=== PATIENT | female | born 1985 | race African-American/Black ===

== ENCOUNTER 2023-06-29 18:27 | Inpatient (IN) | payer MEDICAID ==
[~2023-06-29] VITALS: Ht 154.9 cm; Wt 49.9 kg
[2023-06-29] MEDS ORDERED: GABAPENTIN (18:39)
[2023-06-29] MEDS ORDERED: DILAUDID (18:39)
[2023-06-29] MEDS ORDERED: HYDROMORPHONE 2 MG/1 ML DISP.SYRIN ONE (18:58)
[2023-06-29] MEDS ORDERED: HYDROMORPHONE 1 MG/1 ML DISP.SYRIN IM ONE (19:00)
[2023-06-29 19:09] LABS: EOSINOPHILS # (AUTO) 0.8 K/uL (0.0-0.7); EOSINOPHILS % (AUTO) 12.6 % (0.0-7.0); HEMATOCRIT 31.6 % (31.2-41.9); HEMOGLOBIN 10.3 g/dL (10.9-14.3); LYMPHOCYTES # (AUTO) 2.2 K/uL (0.8-4.8); LYMPHOCYTES % (AUTO) 34.2 % (20.5-51.5); MEAN CORPUSCULAR HEMOGLOBIN 28.7 uug (24.7-32.8); MEAN CORPUSCULAR HGB CONC 33 g/dL (32.3-35.6); MEAN CORPUSCULAR VOLUME 88.2 fL (75.5-95.3); MONOCYTES # (AUTO) 0.3 K/uL (0.1-1.30); MONOCYTES % (AUTO) 5.2 % (0.0-11.0); NEUTROPHILS # (AUTO) 3.1 K/uL (1.8-8.9); PLATELET COUNT (AUTO) 365 K/uL (179-408); RED BLOOD CELL COUNT(AUTO) 3.58 MIL/uL (3.63-4.92); RED CELL DISTRIBUTION WIDTH 18.4 % (12.3-17.7); WHITE BLOOD COUNT (AUTO) 6.5 K/uL (3.8-11.8)
[2023-06-29 19:10] LABS: DIFFERENTIAL COMMENT 1
[2023-06-29 19:16] LABS: CALCIUM 10.2 mg/dL (8.5-10.1); CREATININE 0.7 mg/dL (0.6-1.3); POTASSIUM 3.9 mmol/L (3.5-5.1)
[2023-06-29 19:28] LABS: ALBUMIN 2.4 g/dL (3.4-5.0); BILIRUBIN,TOTAL 0.1 mg/dL (0.2-1.0); TOTAL PROTEIN, SERUM 7.6 g/dL (6.4-8.2)
[2023-06-29 20:09] LABS: *BILIRUBIN,URIN NEGATIVE (NEGATIVE); *BLOOD, URINE 1+ (NEGATIVE); *CLARITY,URINE CLEAR (CLEAR); *COLOR,URINE YELLOW (YELLOW); *KETONES,URINE NEGATIVE (NEGATIVE); *PROTEIN,URINE 2+ (NEGATIVE); *UROBILINOGEN,URINE 0.2 E.U./dl (NORMAL); LEUKOCYTE ESTERASE ,URINE TRACE (NEGATIVE); NITRITE, URINE NEGATIVE (NEGATIVE); UGLUCOSE NEGATIVE (NEGATIVE)
[2023-06-29] MEDS ORDERED: CEphaleXIN 500 MG CAPSULE PO ONE (20:30)
[2023-06-29] MEDS ORDERED: CEPH500C2 PO (20:32)
[2023-06-29] MEDS ORDERED: HYDROMORPHONE 1 MG/1 ML DISP.SYRIN IV ONE (21:15)
[2023-06-29] MEDS ORDERED: IV NS 1000 ML 1,000 ML IV ONE (21:15)
[2023-06-29] MEDS ORDERED: ONDANSETRON 4 MG/2 ML VIAL IV ONE (21:15)
[2023-06-29] MEDS ORDERED: AZITHROMYCIN IV 500 MG in IV DEXTROSE 5% 250 ML IV ONE (23:00)
[2023-06-29] MEDS ORDERED: CEFTRIAXONE 1 G in IV DEXTROSE 5% 50 ML IV ONE (23:00)
[2023-06-29] MEDS ORDERED: METRONIDAZOLE 500 MG/NS 100 ML PIGGYBACK IV ONE (23:00)
[2023-06-29] MEDS ORDERED: CEFTRIAXONE /D5W 50ML IVPB **ER PYXIS IV ONE (23:16)
[2023-06-29] MEDS ORDERED: AZITHROMYCIN 500MG/ D5W 250ML IVPB **ER PYXIS ONLY IV ONE (23:17)
[2023-06-30] MEDS ORDERED: MAGNESIUM HYDROXIDE 30 ML LIQUID UDC PO PRN
[2023-06-30] MEDS ORDERED: PIPERACILLIN SODIUM/TAZOBACTAM 4.5 G in IV DEXTROSE 5% 50 ML IV SCH ×2
[2023-06-30] MEDS ORDERED: HYDROCODONE/APAP 10-325 MG TABLET PO PRN
[2023-06-30] MEDS ORDERED: ACETAMINOPHEN 325 MG TABLET PO PRN
[2023-06-30] MEDS ORDERED: hydrALAZINE HCL 25 MG TABLET PO PRN
[2023-06-30] MEDS ORDERED: REMEDY ESSENTIAL ZINC PASTE 113 GM TP PRN
[2023-06-30] MEDS ORDERED: IOHEXOL 350 100 ML INFUS..BTL ONE (00:24)
[2023-06-30] MEDS ORDERED: IV NORMAL SALINE 250 ML IV ONE (00:24)
[2023-06-30] MEDS ORDERED: SWABABLE VALVE TRANSFER SET EA MC ONE (00:24)
[2023-06-30] MEDS ORDERED: HYDROMORPHONE 2 MG/1 ML DISP.SYRIN ONE (03:01)
[2023-06-30] MEDS: HYDROMORPHONE 1 MG/1 ML DISP.SYRIN IV PRN ×2 (03:03→07:52)
[2023-06-30 03:20] VITALS: BP 153/105; TEMP 99.7; O2SAT 99
[2023-06-30] MEDS: IV 1/2NS 1000 ML 1,000 ML IV PRN ×2 (03:39→16:33)
[2023-06-30] MEDS: ENOXAPARIN SODIUM 40 MG/0.4 ML DISP.SYRIN SQ SCH ×2 (03:43→21:30)
[2023-06-30] MEDS ORDERED: PIPERACILLIN SODIUM/TAZOBACTAM 4.5 G in IV DEXTROSE 5% 50 ML IV ONE (03:45)
[2023-06-30] MEDS ORDERED: PIPERACILLIN/TAZO 4.5 GM VIAL IV ONE (04:17)
[2023-06-30] MEDS: diphenhydrAMINE 25 MG CAP PO PRN ×2 (05:16→16:31)
[2023-06-30 07:23] LABS: *URINE HCG, QUAL NEGATIVE (NEGATIVE)
[2023-06-30] MEDS ORDERED: AMLODIPINE 5 MG TABLET PO SCH (09:00)
[2023-06-30] MEDS: AMLODIPINE 5 MG TABLET PO SCH ×2 (09:31→21:28)
[2023-06-30] MEDS: METOPROLOL TARTRATE 50 MG TABLET PO SCH ×2 (09:32→21:29)
[2023-06-30] MEDS: LOSARTAN POTASSIUM 50 MG TABLET PO SCH ×2 (09:32→21:29)
[2023-06-30] MEDS ORDERED: VITAMINS A AND D 5 GM UD PKT TP ONE (11:00)
[2023-06-30] MEDS ORDERED: HYDROMORPHONE 2 MG/1 ML DISP.SYRIN IV PRN (11:15)
[2023-06-30 11:34] VITALS: BP 141/98; TEMP 99.2; O2SAT 99
[2023-06-30] MEDS ORDERED: HYDROMORPHONE HCL 2 MG TABLET PO PRN (12:15)
[2023-06-30] MEDS: DEXAMETHASONE 4 MG TABLET PO SCH (12:15)
[2023-06-30] MEDS: GABAPENTIN 400 MG CAPSULE PO SCH ×2 (12:47→16:31)
[2023-06-30] MEDS: BACLOFEN 20 MG TABLET PO SCH ×2 (12:47→16:31)
[2023-06-30] MEDS: MIRALAX 17 GM POWD.PACK PO SCH (12:47)
[2023-06-30] MEDS: ONDANSETRON 4 MG/2 ML VIAL IV PRN (12:55)
[2023-06-30] MEDS ORDERED: MORPHINE SULFATE SR 30 MG TABLET.SA PO SCH (14:00)
[2023-06-30] MEDS: PIPERACILLIN SODIUM/TAZOBACTAM 3.375 G in IV DEXTROSE 5% 100 ML IV SCH ×2 (14:20→21:31)
[2023-06-30 15:46] VITALS: BP 124/74; TEMP 99.1; O2SAT 98
[2023-06-30] MEDS: HYDROMORPHONE 2 MG/1 ML DISP.SYRIN IV PRN ×2 (16:31→22:25)
[2023-06-30 20:56] VITALS: BP 145/97; TEMP 98.6; O2SAT 99
[2023-06-30] MEDS: DOCUSATE SODIUM 100 MG CAPSULE PO SCH (21:28)
[2023-07-01 00:12] VITALS: BP 128/91; TEMP 99.5; O2SAT 99
[2023-07-01] MEDS: HYDROMORPHONE 2 MG/1 ML DISP.SYRIN IV PRN ×6 (02:29→22:36)
[2023-07-01] MEDS: ONDANSETRON 4 MG/2 ML VIAL IV PRN ×3 (02:40→10:43)
[2023-07-01 04:15] VITALS: BP 127/87; TEMP 98.7; O2SAT 100
[2023-07-01] MEDS: IV 1/2NS 1000 ML 1,000 ML IV PRN (06:35)
[2023-07-01] MEDS: PIPERACILLIN SODIUM/TAZOBACTAM 3.375 G in IV DEXTROSE 5% 100 ML IV SCH ×3 (06:35→22:03)
[2023-07-01 07:51] LABS: BASOPHILS % (AUTO) 0.7 % (0.0-2.0); EOSINOPHILS # (AUTO) 0.1 K/uL (0.0-0.7); EOSINOPHILS % (AUTO) 1.6 % (0.0-7.0); HEMATOCRIT 24.8 % (31.2-41.9); HEMOGLOBIN 8.4 g/dL (10.9-14.3); LYMPHOCYTES # (AUTO) 0.5 K/uL (0.8-4.8); LYMPHOCYTES % (AUTO) 7.3 % (20.5-51.5); MEAN CORPUSCULAR HEMOGLOBIN 29.8 uug (24.7-32.8); MEAN CORPUSCULAR HGB CONC 34 g/dL (32.3-35.6); MEAN CORPUSCULAR VOLUME 88.2 fL (75.5-95.3); MONOCYTES # (AUTO) 0.9 K/uL (0.1-1.30); MONOCYTES % (AUTO) 13.8 % (0.0-11.0); NEUTROPHILS % (AUTO) 76.6 % (38.5-71.5); PLATELET COUNT (AUTO) 283 K/uL (179-408); RED BLOOD CELL COUNT(AUTO) 2.81 MIL/uL (3.63-4.92); WHITE BLOOD COUNT (AUTO) 6.5 K/uL (3.8-11.8)
[2023-07-01 07:56] LABS: DIFFERENTIAL COMMENT 1
[2023-07-01 08:09] LABS: ALBUMIN 1.9 g/dL (3.4-5.0); BILIRUBIN,TOTAL 0.1 mg/dL (0.2-1.0); CALCIUM 9.1 mg/dL (8.5-10.1); CREATININE 0.7 mg/dL (0.6-1.3); MAGNESIUM 1.6 mg/dL (1.8-2.4); POTASSIUM 3.3 mmol/L (3.5-5.1); TOTAL PROTEIN, SERUM 6.3 g/dL (6.4-8.2)
[2023-07-01 08:17] LABS: THYROID STIMULATING HORMONE 0.737 mIU/mL (0.358-3.740)
[2023-07-01] MEDS: DOCUSATE SODIUM 100 MG CAPSULE PO SCH ×3 (09:00→21:07)
[2023-07-01] MEDS: MIRALAX 17 GM POWD.PACK PO SCH (09:00)
[2023-07-01] MEDS ORDERED: POTASSIUM CHLORIDE 20 MEQ TAB.PRT.SR PO ONE (09:15)
[2023-07-01] MEDS ORDERED: MAGNESIUM OXIDE 400 MG TABLET PO ONE (09:15)
[2023-07-01] MEDS: BACLOFEN 20 MG TABLET PO SCH ×3 (09:47→17:31)
[2023-07-01] MEDS: GABAPENTIN 400 MG CAPSULE PO SCH ×3 (09:47→17:31)
[2023-07-01] MEDS: DEXAMETHASONE 4 MG TABLET PO SCH (09:47)
[2023-07-01] MEDS: METOPROLOL TARTRATE 50 MG TABLET PO SCH ×2 (09:50→21:07)
[2023-07-01] MEDS: LOSARTAN POTASSIUM 50 MG TABLET PO SCH ×2 (09:50→21:08)
[2023-07-01] MEDS: AMLODIPINE 5 MG TABLET PO SCH ×2 (09:50→21:07)
[2023-07-01 11:30] VITALS: BP 105/75; TEMP 98.9; O2SAT 98
[2023-07-01 16:30] VITALS: BP 110/77; TEMP 98.4; O2SAT 98
[2023-07-01] MEDS ORDERED: SENN1TAB33 PO (18:20)
[2023-07-01] MEDS ORDERED: HYDR4TAB4 IV (18:20)
[2023-07-01] MEDS ORDERED: ONDA4TAB11 PO (18:20)
[2023-07-01] MEDS ORDERED: PANT40TA2 PO (18:20)
[2023-07-01] MEDS ORDERED: METO50TA16 PO (18:20)
[2023-07-01] MEDS ORDERED: BACL20TA PO (18:20)
[2023-07-01] MEDS ORDERED: AMLO10TA59 PO (18:20)
[2023-07-01] MEDS ORDERED: GABA-536 PO (18:20)
[2023-07-01] MEDS ORDERED: POLY119P2 PO (18:20)
[2023-07-01] MEDS ORDERED: ALBU0.63 NEB (18:20)
[2023-07-01] MEDS ORDERED: FOLI1TAB94 PO (18:20)
[2023-07-01] MEDS ORDERED: DOCU-141 PO (18:20)
[2023-07-01] MEDS ORDERED: LISI30TA4 PO (18:20)
[2023-07-01] MEDS ORDERED: BISA-79 PO (18:20)
[2023-07-01] MEDS ORDERED: DEXA4TAB PO (18:20)
[2023-07-01 20:59] VITALS: BP 102/70; TEMP 98; O2SAT 97
[2023-07-01] MEDS: ENOXAPARIN SODIUM 40 MG/0.4 ML DISP.SYRIN SQ SCH (21:29)
[2023-07-02] MEDS: IV 1/2NS 1000 ML 1,000 ML IV PRN (00:30)
[2023-07-02 00:52] VITALS: BP 123/81; TEMP 97.4; O2SAT 100
[2023-07-02] MEDS: ONDANSETRON 4 MG/2 ML VIAL IV PRN (00:59)
[2023-07-02] MEDS: HYDROMORPHONE 2 MG/1 ML DISP.SYRIN IV PRN ×3 (02:42→10:46)
[2023-07-02 05:12] VITALS: BP 116/74; TEMP 97.6; O2SAT 98
[2023-07-02] MEDS: PIPERACILLIN SODIUM/TAZOBACTAM 3.375 G in IV DEXTROSE 5% 100 ML IV SCH ×2 (05:59→13:44)
[2023-07-02 07:23] LABS: BASOPHILS % (AUTO) 0.7 % (0.0-2.0); EOSINOPHILS # (AUTO) 0.1 K/uL (0.0-0.7); EOSINOPHILS % (AUTO) 0.8 % (0.0-7.0); HEMATOCRIT 27.6 % (31.2-41.9); HEMOGLOBIN 9.1 g/dL (10.9-14.3); LYMPHOCYTES # (AUTO) 0.8 K/uL (0.8-4.8); LYMPHOCYTES % (AUTO) 10.9 % (20.5-51.5); MEAN CORPUSCULAR HEMOGLOBIN 28.8 uug (24.7-32.8); MEAN CORPUSCULAR HGB CONC 33 g/dL (32.3-35.6); MEAN CORPUSCULAR VOLUME 87.8 fL (75.5-95.3); MONOCYTES # (AUTO) 0.6 K/uL (0.1-1.30); MONOCYTES % (AUTO) 8.8 % (0.0-11.0); NEUTROPHILS # (AUTO) 5.5 K/uL (1.8-8.9); NEUTROPHILS % (AUTO) 78.8 % (38.5-71.5); PLATELET COUNT (AUTO) 329 K/uL (179-408); RED BLOOD CELL COUNT(AUTO) 3.14 MIL/uL (3.63-4.92); RED CELL DISTRIBUTION WIDTH 18.1 % (12.3-17.7)
[2023-07-02 07:35] LABS: DIFFERENTIAL COMMENT 1
[2023-07-02 07:36] LABS: CALCIUM 9.7 mg/dL (8.5-10.1); CARBON DIOXIDE 27 mmol/L (21-32); CHLORIDE 102 mmol/L (98-107); CREATININE 0.6 mg/dL (0.6-1.3); GLUCOSE 91 mg/dL (74-106); MAGNESIUM 1.8 mg/dL (1.8-2.4); PHOSPHOROUS 3.7 mg/dL (2.5-4.9); POTASSIUM 3.6 mmol/L (3.5-5.1); SODIUM SERUM 139 mmol/L (136-145); UREA NITROGEN, BLOOD 4 mg/dL (7-18)
[2023-07-02 08:00] VITALS: BP 105/71; TEMP 97.2; O2SAT 99
[2023-07-02] MEDS: GABAPENTIN 400 MG CAPSULE PO SCH ×2 (08:35→13:12)
[2023-07-02] MEDS: METOPROLOL TARTRATE 50 MG TABLET PO SCH (08:36)
[2023-07-02] MEDS: BACLOFEN 20 MG TABLET PO SCH ×2 (08:36→13:12)
[2023-07-02] MEDS: DEXAMETHASONE 4 MG TABLET PO SCH (08:36)
[2023-07-02] MEDS: DOCUSATE SODIUM 100 MG CAPSULE PO SCH (08:36)
[2023-07-02] MEDS: LOSARTAN POTASSIUM 50 MG TABLET PO SCH (08:36)
[2023-07-02] MEDS: MIRALAX 17 GM POWD.PACK PO SCH (08:37)
[2023-07-02] MEDS: AMLODIPINE 5 MG TABLET PO SCH (08:37)
[2023-07-02] MEDS ORDERED: CIPR500T5 PO (11:09)
[2023-07-02] MEDS ORDERED: LOSA50TA3 PO (11:09)
[2023-07-02] MEDS ORDERED: METO50TA16 PO (11:09)
[2023-07-02] MEDS ORDERED: AMLO-212 PO (11:09)
[2023-07-02 11:30] VITALS: BP 97/61; TEMP 97.4; O2SAT 96
== END 2023-07-02 14:30 | disposition home health service (06) | DRG 249 ==
LOC: ER 18:30 → TELE3 23:20
PROVIDERS: ADMIT Internal Medicine; ATTEND Nurse Practitioner Acute Care
DX: K52.9 Noninfective gastroenteritis and colitis, unspecified (principal); C78.01 Secondary malignant neoplasm of right lung; C78.02 Secondary malignant neoplasm of left lung; C79.89 Secondary malignant neoplasm of other specified sites; E44.0 Moderate protein-calorie malnutrition; E88.09 Other disorders of plasma-protein metabolism, not elsewhere classified; D84.81 Immunodeficiency due to conditions classified elsewhere; G89.3 Neoplasm related pain (acute) (chronic); E87.1 Hypo-osmolality and hyponatremia; C53.9 Malignant neoplasm of cervix uteri, unspecified; I16.0 Hypertensive urgency; N30.90 Cystitis, unspecified without hematuria; Z90.49 Acquired absence of other specified parts of digestive tract; E83.52 Hypercalcemia; I10 Essential (primary) hypertension; N32.9 Bladder disorder, unspecified; N13.30 Unspecified hydronephrosis; D72.819 Decreased white blood cell count, unspecified; K76.89 Other specified diseases of liver; Z79.899 Other long term (current) drug therapy
CPT/HCPCS: 36415; 71045; 71275; 83605; 83735; 84100; 84443; 84484; 84703; 85025; 87040; 93005; 93307; A4606; A4663; G0378; J0456; J0696; J1170; J1650; J2405; J2543; J3490; J7040; J7050; J8540; Q0163; Q9967